=== PATIENT | male | born 1935 | race Caucasian/White ===

== ENCOUNTER 2018-04-19 17:28 | Emergency (ER) | payer OTHER ==
[~2018-04-19] VITALS: Ht 170.2 cm; Wt 83.9 kg
[2018-04-19] MEDS ORDERED: ONDANSETRON HCL/PF 4 MG/2 ML VIAL ONE (17:58)
[2018-04-19] MEDS ORDERED: ONDANSETRON HCL/PF - ER 4 MG/2 ML VIAL IV ONE (18:00)
[2018-04-19] MEDS ORDERED: IV NS 0.9% 1,000 ML BAG IV ONE (18:00)
--- NOTE | 2018-04-19 18:00 | NUR ---
bibra 77 from home c/o r hip pain, +external rotation, +shortening, s/p glf. Pt AAOx3, vss. -KO, + nausea. Denies dizziness, cp, sob @ this time. placed on cardiac specialist. Pt seen & eval'd by Dr. Weathers. will cont to monitor.
--- NOTE | 2018-04-19 18:10 | NUR ---
MEDICATED FOR VOMITING PER ERMD ORDER, PT KYRA WELL.
[2018-04-19 18:18] LABS: BASOPHILS % (AUTO) 0.3 % (0.0-2.0); EOSINOPHILS % (AUTO) 0.3 % (0.0-6.0); HEMATOCRIT 38 % (39-51); HEMOGLOBIN 12.9 g/dL (13.5-17.5); LYMPHOCYTES # (AUTO) 1.8 /CMM (0.8-4.8); LYMPHOCYTES % (AUTO) 14.7 % (20.0-44.0); MEAN CORPUSCULAR HGB CONC 35 g/dl (31.0-36.0); MEAN CORPUSCULAR VOLUME 93 fL (80-96); MONOCYTES # (AUTO) 0.8 /CMM (0.1-1.30); MONOCYTES % (AUTO) 6.3 % (2.0-12.0); NEUTROPHILS # (AUTO) 9.9 /CMM (1.8-8.9); NEUTROPHILS % (AUTO) 78.4 % (43.0-81.0); PLATELET COUNT (AUTO) 173 /CMM (150-450); RED BLOOD CELL COUNT(AUTO) 4.03 MIL/uL (4.5-6.0); WHITE BLOOD COUNT (AUTO) 12.5 K/uL (4.3-11.0)
[2018-04-19 18:28] LABS: CALCIUM, SERUM 8.5 mg/dL (8.5-10.1); CARBON DIOXIDE 27 mmol/L (21-32); CHLORIDE 108 mmol/L (98-107); GLUCOSE 117 mg/dL (74-106); SODIUM SERUM 142 mmol/L (136-145); UREA NITROGEN, BLOOD 23 mg/dL (7-18)
[2018-04-19 18:31] LABS: INR 1.06 (0.85-1.15)
[2018-04-19 18:52] LABS: CREATINE KINASE, TOTAL 121 U/L (39-308)
--- NOTE | 2018-04-19 19:16 | NUR ---
PT STABLE, DENIES NAUSEA, RT HIP PAIN OR ANY OTHER DISCOMFORT @ THIS TIME, " I FEEL MUCH BETTER, IT ONLY HURTS WHEN I MOVE IT ". WILL CONT TO MONITOR.
[2018-04-19] MEDS ORDERED: ABIR250T PO (19:17)
[2018-04-19] MEDS ORDERED: PRED10TA PO (19:17)
--- NOTE | 2018-04-19 19:17 | NUR ---
191 I spoke with [facility] and provided information to confirm patient's identity. Patient's active status confirmed with [facility]. Initial and current vitals given with time stamps. The caller to call back for P2P with Dr. Dario Weathers MD to discuss transfer. Note was made to include [facility].
--- NOTE | 2018-04-19 19:23 | NUR ---
Doctor Weathers discussed the case with Dr Bruce of [facility] and discussed HPI, current work up and results. Dr Bruce agrees to transfer and will arrange [facility] transport. AUTHORIZATION NUMBER [id number]
[2018-04-19] MEDS ORDERED: POTASSIUM CHLORIDE 20 MEQ TAB.PRT.SR PO ONE ×2 (19:30→20:00)
--- NOTE | 2018-04-19 19:59 | NUR ---
PER [facility] TRANSPORT ETA 2044 FACILITY: [facility] ER PRN TRANSPORT ACCEPTING: DR BARROS
--- NOTE | 2018-04-19 20:11 | NUR ---
REPORT GIVEN TO SONNY FLORES RN @ [facility].
--- NOTE | 2018-04-19 20:46 | NUR ---
REPORT GIVEN TO EMT [facility]. VSS. PT IV INTACT AND PATENT. NO S/S INFECTION OF INFILTRATION NOTED. PT AWARE OF TRANSFER TO [facility], PT WITH ALL PERSONAL BELONGINGS. PER [facility] TOOK OVER CARE.
[2018-04-19 20:52] VITALS: BP 136/55
== END 2018-04-19 20:53 | disposition short-term general hospital (02) ==
LOC: ER 17:31
DX: S72.141A Displaced intertrochanteric fracture of right femur, initial encounter for closed fracture (principal); E87.6 Hypokalemia; D72.829 Elevated white blood cell count, unspecified; D64.9 Anemia, unspecified; R79.89 Other specified abnormal findings of blood chemistry; E86.0 Dehydration; Z85.46 Personal history of malignant neoplasm of prostate; W10.8XXA Fall (on) (from) other stairs and steps, initial encounter; Y93.89 Activity, other specified; Y92.008 Other place in unspecified non-institutional (private) residence as the place of occurrence of the external cause; Y99.8 Other external cause status
CPT/HCPCS: 36415; 71045; 73502; 80048; 82550; 85025; 85730; 86850; 93005; 96374; 99285; J2405; A4606; Z7610